=== PATIENT | female | born 1975 | race African-American/Black ===

== ENCOUNTER 2021-11-26 10:56 | Emergency (ER) | payer MEDICAID, OTHER ==
[~2021-11-26] VITALS: Ht 175.3 cm; Wt 125.2 kg
[2021-11-26 11:00] VITALS: BP 120/93
[2021-11-26] MEDS ORDERED: TRANEXAMIC ACID 1,000 MG/10 ML TP ONE (13:15)
== END 2021-11-26 15:58 | disposition home or self-care (01) ==
LOC: ER 11:42
DX: L76.22 Postprocedural hemorrhage of skin and subcutaneous tissue following other procedure (principal); Y83.8 Other surgical procedures as the cause of abnormal reaction of the patient, or of later complication, without mention of misadventure at the time of the procedure; Y92.018 Other place in single-family (private) house as the place of occurrence of the external cause
CPT/HCPCS: 99281

== ENCOUNTER 2022-02-22 23:35 | Emergency (ER) | payer OTHER ==
[~2022-02-22] VITALS: Ht 175.3 cm; Wt 119.0 kg
[2022-02-23] MEDS ORDERED: SODIUM CHLORIDE 0.9% 1,000 ML IV ONE (01:15)
[2022-02-23] MEDS ORDERED: ACETAMINOPHEN 325MG TABLET PO ONE (01:15)
[2022-02-23 01:38] LABS: HEMATOCRIT. 37.7 % (36.0-48.0); HEMOGLOBIN. 12.5 g/dL (12.0-16.0); MEAN CORPUSCULAR HEMOGLOBIN 24.7 pg (28.0-32.0); MEAN CORPUSCULAR VOLUME 74.5 fL (81.0-99.0); MEAN PLATELET VOLUME 9.1 fl (7.4-10.4); PLATELET 269 x1000/uL (130-400); RED BLOOD CELL COUNT 5.06 mill/uL (4.2-5.4); RED CELL DISTRIBUTION WIDTH 15.4 % (11.6-14.6)
[2022-02-23 01:45] LABS: CHLORIDE 99 mEq/L (98-107)
[2022-02-23] MEDS ORDERED: POTASSIUM CHLORIDE 20MEQ/PACKET PO NR (02:15)
[2022-02-23 02:55] LABS: PLATELET ESTIMATE NORMAL
[2022-02-23] MEDS ORDERED: FAMOTIDINE 20MG/2ML VIAL IV ONE (03:00)
[2022-02-23] MEDS ORDERED: ONDANSETRON HCL 4MG/2ML INJ IV ONE (03:00)
[2022-02-23] MEDS ORDERED: IOHEXOL-300 100 ML BOTTLE ONE (03:51)
[2022-02-23 03:55] LABS: HCG SCREEN NEGATIVE
[2022-02-23] MEDS ORDERED: CEFTRIAXONE 1 G PREMIX 50 ML IV ONE (04:00)
[2022-02-23] MEDS ORDERED: DOXY100C5 MT (05:43)
[2022-02-23] MEDS ORDERED: TOPUD MT (05:43)
[2022-02-23 07:00] VITALS: BP 110/67
== END 2022-02-23 07:19 | disposition home or self-care (01) ==
LOC: ER 23:35
DX: J06.9 Acute upper respiratory infection, unspecified (principal); Z20.822 Contact with and (suspected) exposure to COVID-19
CPT/HCPCS: 36415; 71045; 71046; 74177; 80053; 84484; 84703; 85025; 87040; 87426; 87804; 93005; 96361; 96365; 96375; 99285; C9803; J0696; J2405; J3490; J7030; Q9967; Z7610